=== PATIENT | female | born 1975 | race Caucasian/White ===

== ENCOUNTER → 2022-03-05 | Outpatient (CLI) | payer OTHER ==
[~2022-03-05] MED LIST: AZIT250 PO; CARI350 PO; CEPH500 PO; CLIN300 PO; CODACE30 PO; CRUTCH3 USE; CYCL10 PO; HYDACE5 PO; IBUP600 PO; IBUP800 PO; NAPR500 PO; OXYACE5T PO; PRED20 PO; TRAM50 PO
[2022-03-07 10:11] LABS: HPV 16 Negative (Negative); HPV 18 Negative (Negative); HPV OTHER HR TYPES Negative (Negative)
== END | disposition home or self-care (01) ==
LOC: LAB SHORT 12:27 → LAB 12:27
PROVIDERS: Family Medicine
DX: Z12.4 Encounter for screening for malignant neoplasm of cervix (principal)
CPT/HCPCS: 87624; G0145

== ENCOUNTER → 2022-04-04 | Outpatient (CLI) | payer OTHER | END | disposition home or self-care (01) | LOC: LAB 12:00 → LAB SHORT 12:00 | DX: E11.65 Type 2 diabetes mellitus with hyperglycemia (principal) | CPT/HCPCS: 82043 ==

== ENCOUNTER 2023-04-26 13:57 | Day surgery (SDC) | payer OTHER ==
[2023-04-26] VITALS (11 sets, daily range): BP systolic 113–130; BP diastolic 55–103
[~2023-04-26] VITALS: Ht 165.1 cm; Wt 90.0 kg
[~2023-04-26 13:57] MED LIST changes: +ALBU90OI INH; +METF500 PO; +PIOG15 PO; +Vitamin B-12100 MCG PO
--- NOTE | 2023-04-26 14:20 | NUR ---
PT TO DAY SURGERY FOR EGD. PLAN OF CARE DISCUSSED. PT HAS RIDE HOME WAITING IN HOSPITAL.
--- NOTE | 2023-04-26 15:06 | NUR ---
04/26/23 1506 [address] [place] HISTORY, CHART, MEDICATIONS AND ALLERGIES REVIEWED BEFORE START OF PROCEDURE. PATIENT CONFIRMS NPO STATUS AND AGREES WITH SCHEDULED PROCEDURE. 3-LEAD EKG REVIEWED WITH PHYSICIAN PRIOR TO START OF PROCEDURE. MONITOR INTACT WITH CONTINUOUS PULSE OXIMETRY,CAPNOGRAPHY, 3-LEAD EKG, INTERMITTENT BP. SUPPLEMENTAL O2 TO BE TITRATED THROUGHOUT PROCEDURE TO MAINTAIN O2 SATURATION ABOVE 90%. PATIENT DETERMINED TO BE ASA APPROPRIATE FOR PROPOFOL SEDATION PRIOR TO START OF PROCEDURE BY DR. CALLAWAY.
--- NOTE | 2023-04-26 15:23 | NUR ---
PT BACK INTO DAY SURGERY FOR RECOVERY FROM EGD. PT AWAKE AND ORIENTED, BUT SLEEPY. DENIES PAIN. HAS NO COMPLAINTS.
--- NOTE | 2023-04-26 15:32 | NUR ---
PT SITTING UP IN BED. PO FLUIDS AND CRACKERS GIVEN. NO COMPLAINTS.
--- NOTE | 2023-04-26 15:46 | NUR ---
TOLERATING PO FLUIDS AND CRACKERS WELL. Discharge instructions reviewed with patient. Patient verbalizes understanding. Copy given to patient to take home. Patient States Post-Procedure ride home has been arranged. Patient up to Ambulate independently. Gait steady. Discharged via wheelchair to private car for ride home.
== END 2023-04-26 15:48 | disposition home or self-care (01) ==
LOC: ORSCMMR 13:57 → ORSCSDS 14:45 → ORSCMMR 15:15
PROVIDERS: Specialist
PROC: 0DB68ZX Excision of Stomach, Via Natural or Artificial Opening Endoscopic, Diagnostic (ICD-10-PCS; principal; 2023-04-26 15:15)
DX: R10.13 Epigastric pain (principal); K25.9 Gastric ulcer, unspecified as acute or chronic, without hemorrhage or perforation; K29.70 Gastritis, unspecified, without bleeding; K76.0 Fatty (change of) liver, not elsewhere classified; F17.210 Nicotine dependence, cigarettes, uncomplicated; Z79.899 Other long term (current) drug therapy
CPT/HCPCS: 82947; 88305; 88341; 88342; J2704; J7120

== ENCOUNTER 2024-07-16 13:41 | Emergency (ER) | payer OTHER ==
[~2024-07-16] VITALS: Ht 165.1 cm; Wt 98.0 kg
[2024-07-16 14:04] VITALS: BP 126/75
== END 2024-07-16 15:35 | disposition home or self-care (01) ==
LOC: ER 13:41
DX: S01.81XA Laceration without foreign body of other part of head, initial encounter (principal); W22.8XXA Striking against or struck by other objects, initial encounter; Z88.0 Allergy status to penicillin; Z79.899 Other long term (current) drug therapy; Z79.84 Long term (current) use of oral hypoglycemic drugs
CPT/HCPCS: 12015; 99282-25

== ENCOUNTER → 2025-02-11 | Outpatient (CLI) | payer OTHER ==
[2025-02-24 15:20] LABS: 3-OH-COTININE, URN, QUANT 636 ng/mL; ANABASINE, URN, QUANT <5 ng/mL; COTININE, URN, QUANT 188 ng/mL; NICOTINE, URN, QUANT 278 ng/mL
== END ==
LOC: LAB SHORT 12:53 → LAB 12:53
PROVIDERS: Obstetrics & Gynecology
DX: Z72.0 Tobacco use (principal)
CPT/HCPCS: G0480

== ENCOUNTER → 2025-02-16 | Outpatient (CLI) | payer OTHER | END | disposition home or self-care (01) | LOC: LAB 09:00 → LAB SHORT 09:00 | DX: N93.8 Other specified abnormal uterine and vaginal bleeding (principal) | CPT/HCPCS: 88305 ==

== ENCOUNTER 2025-03-29 06:17 | Day surgery (SDC) | payer OTHER ==
[2025-03-29] VITALS (13 sets, daily range): BP systolic 117–136; BP diastolic 66–81
[~2025-03-29] VITALS: Ht 162.6 cm; Wt 99.0 kg
[~2025-03-29 06:17] MED LIST changes: +ACET500 PO; +ATOR20 PO; +CeFAZolin Sodium 2,000 MG in NS 100 ML IV SCH; +FERSU300 PO; +GLUCOPHAGE1000 M1 PO; -METF500 PO; +NEXPLANON68 MG; +ONDA4ODT MM; +OXYC5 PO; -PIOG15 PO; +PIOG30 PO; +PREG75 PO; +STEGLATRO5 MG PO
[2025-03-29] MEDS ORDERED: Rocuronium Bromide 10 MG/ML 5ML Injection IV ONE ×3 (06:53→09:35)
[2025-03-29] MEDS ORDERED: FentaNYL Citrate 50 MCG/ML 2 ML Injection ONE ×2 (06:54→09:16)
[2025-03-29] MEDS ORDERED: Midazolam HCl 1MG / ML 2ML Vial ONE (06:54)
[2025-03-29] MEDS ORDERED: Bupivacaine 0.25% Epi 1:200000 30 ML Vial ONE ×2 (06:59→10:09)
--- NOTE | 2025-03-29 07:20 | NUR ---
History, Chart, Medications and Allergies reviewed before start of procedure. Patient up to Ambulate independently. Gait steady. Pre-Op teaching done. Pt verbalizes understanding. Patient confirms NPO status and agrees with scheduled surgery. Patient reports completing Chlorhexadine shower X2 prior to admission to hospital. Surgical site prepped with 2% Chlorhexidine cloth wipe. Patient States Post-Procedure ride home has been arranged.
[2025-03-29] MEDS ORDERED: Ondansetron HCl 2 MG / ML 2ML Vial ONE (07:40)
[2025-03-29] MEDS ORDERED: Dexamethasone Sod Phos 10 MG/ML 1ML VIAL ONE (07:40)
[2025-03-29] MEDS ORDERED: FentaNYL Citrate 50 MCG/ML 2 ML Injection IV PRN ×2 (08:00→08:05)
[2025-03-29] MEDS ORDERED: HYDROmorphone HCl/Pf 1MG SYR IV PRN ×3 (08:00→11:15)
[2025-03-29] MEDS ORDERED: Ondansetron HCl 2 MG / ML 2ML Vial IV PRN ×2 (08:00→11:25)
[2025-03-29] MEDS ORDERED: Bupivacaine 0.25% Epi 1:200000 30 ML Vial INJ ONE (10:11)
[2025-03-29] MEDS ORDERED: Ketorolac Tromethamine 30mg Vial ONE (10:43)
[2025-03-29] MEDS ORDERED: Sugammadex Sodium 200 MG/2ML SDV (100 MG/ML) ONE (10:43)
[2025-03-29] MEDS ORDERED: FLU VACC TS2025-26(6MOS UP)/PF 45 MCG/0.5 ML SYRINGE IM SCH (11:15)
[2025-03-29] MEDS ORDERED: Naloxone HCl 0.4MG / ML 1ML Vial IV PRN (11:20)
[2025-03-29] MEDS ORDERED: Metoclopramide HCl 5MG / ML 2ML Vial IV PRN (11:20)
[2025-03-29] MEDS ORDERED: Ketorolac Tromethamine 30mg Vial IV SCH (12:00)
--- NOTE | 2025-03-29 14:32 | NUR ---
ASSUMED CARE OF PT
[2025-03-29] MEDS ORDERED: SIME80CH PO (16:31)
[2025-03-29] MEDS ORDERED: MIRALAX17 GM PO (16:31)
--- NOTE | 2025-03-29 17:13 | NUR ---
DISCHARGE NOTE S/P HYSTERECTOMY PT IS A/OX4. TOLERATING PO INTAKE, DENIES N/V. PT IS VOIDING APPROP. MOD BLEEDING ON LUIS PADS. PAIN MANAGED PER EMAR. PT VERBALIZES UNDERSTANDING OF DC INSTRUCTIONS. AWAITING RIDE HOME. PT HAS ALL PERSONAL BELONGINGS. IV'S REMOVED. CALL LIGHT IN REACH.
--- NOTE | 2025-03-29 18:03 | NUR ---
pt escorted out via [facility] @ approx 1750
[2025-03-29] MEDS ORDERED: MetFORMIN HCl 500 mg PO SCH (21:00)
[2025-03-30] MEDS ORDERED: Polyethylene Glycol 3350 17 gm PO SCH (09:00)
[2025-03-30] MEDS ORDERED: Enoxaparin 40 MG/0.4 ML SYR SC SCH (09:00)
== END 2025-03-29 17:50 | disposition home or self-care (01) ==
LOC: ORSCMMR 06:17 → ORD 07:30 → SURS 11:55 → ORSCMMR 17:50
PROVIDERS: Obstetrics & Gynecology
PROC: 0JPV0HZ Removal of Contraceptive Device from Upper Extremity Subcutaneous Tissue and Fascia, Open Approach (ICD-10-PCS; principal; 2025-03-29 07:30)
PROC: 0UT7FZZ Resection of Bilateral Fallopian Tubes, Via Natural or Artificial Opening With Percutaneous Endoscopic Assistance (ICD-10-PCS; principal; 2025-03-29 07:30)
PROC: 0JQC0ZZ Repair Pelvic Region Subcutaneous Tissue and Fascia, Open Approach (ICD-10-PCS; principal; 2025-03-29 07:30)
PROC: 0UT9FZZ Resection of Uterus, Via Natural or Artificial Opening With Percutaneous Endoscopic Assistance (ICD-10-PCS; principal; 2025-03-29 07:30)
DX: N93.8 Other specified abnormal uterine and vaginal bleeding (principal); D25.2 Subserosal leiomyoma of uterus; N81.5 Vaginal enterocele; Z30.46 Encounter for surveillance of implantable subdermal contraceptive; N94.6 Dysmenorrhea, unspecified; E11.9 Type 2 diabetes mellitus without complications; J45.909 Unspecified asthma, uncomplicated; E78.5 Hyperlipidemia, unspecified; Z87.891 Personal history of nicotine dependence; E66.9 Obesity, unspecified; Z68.37 Body mass index [BMI] 37.0-37.9, adult; Z79.84 Long term (current) use of oral hypoglycemic drugs; Z79.899 Other long term (current) drug therapy
CPT/HCPCS: 82947; 86850; 86900; 86901; 88307; A9270; J0690; J1100; J1885; J2250; J2405; J2704; J3010; J7120

== ENCOUNTER → 2025-04-12 | Outpatient (CLI) | payer OTHER ==
[~2025-04-12] MED LIST changes: -CeFAZolin Sodium 2,000 MG in NS 100 ML IV SCH; +MIRALAX17 GM PO; +SIME80CH PO
[2025-04-12 11:16] LABS: Source, Urine Clean Catch
[2025-04-12 13:10] LABS: Bilirubin, Urine Neg (Neg); Color, Urine Yellow (P-Yellow); Glucose Qualitative, Urine 4+ (Neg); Ketones, Urine Neg (Neg); Leukocyte Esterase, Urine Neg (Neg); Protein, Urine Neg (Neg); Specific Gravity, Urine 1.015 (1.003-1.022); Urobilinogen, Urine NORM (Normal)
== END ==
LOC: LAB SHORT 10:46 → LAB 10:46
PROVIDERS: Obstetrics & Gynecology
DX: Z48.89 Encounter for other specified surgical aftercare (principal)
CPT/HCPCS: 81001